=== PATIENT | male | born 1955 | race Caucasian/White ===

== ENCOUNTER → 2019-03-03 15:32 | Outpatient (CLI) | payer SELFPAY | END | disposition home or self-care (01) | LOC: D.LABREF 15:32 | PROVIDERS: ATTEND Legal Medicine | DX: R53.81 Other malaise (principal) ==

== ENCOUNTER 2020-07-14 15:05 | Inpatient (IN) | payer OTHER ==
[~2020-07-14] VITALS: Ht 177.8 cm; Wt 45.5 kg
[2020-07-14] MEDS ORDERED: MELATONIN 3 MG1 TAB PO (15:19)
[2020-07-14] MEDS ORDERED: MOBIC7.5 MG PO (15:20)
[2020-07-14] MEDS ORDERED: OMEPRAZOLE20 M1 PO (15:23)
[2020-07-14] MEDS ORDERED: CARAFATE1 G PO (15:24)
[2020-07-14] MEDS ORDERED: TRAZODONE HCL150 MG PO (15:25)
[2020-07-14] MEDS ORDERED: TYLENOL ARTHRI650 MG PO (15:26)
[2020-07-14] MEDS ORDERED: ASCORBIC ACID500 MG PO (15:27)
[2020-07-14] MEDS ORDERED: ZOLOFT50 MG PO (15:27)
[2020-07-14] MEDS ORDERED: VITAMIN D-32000 UNIT PO (15:27)
[2020-07-14] MEDS ORDERED: BIOFREEZE118 ML TOPICAL (15:28)
[2020-07-14] MEDS ORDERED: BENZTROPINE MESY1 MG PO (15:28)
[2020-07-14] MEDS ORDERED: CLOZAPINE200 MG PO (15:29)
[2020-07-14] MEDS ORDERED: CREON (PANCRELI1 CAP PO (15:29)
[2020-07-14] MEDS ORDERED: DEPAKOTE500 MG PO (15:30)
[2020-07-14] MEDS ORDERED: SURFAK240 MG PO (15:30)
[2020-07-14] MEDS ORDERED: LISINOPRIL2.5 MG PO (15:31)
[2020-07-14] MEDS ORDERED: ADVIL200 MG PO (15:31)
[2020-07-14] MEDS ORDERED: KEPPRA500 MG PO (15:31)
[2020-07-14 16:50] LABS: BASOPHILS 0.2 % (0-2); EOSINOPHILS 0 % (0-7); HEMATOCRIT 35.7 % (42.0-54.0); HEMOGLOBIN 11.7 g/dL (13.5-17.5); IMMATURE GRANULOCYTES 0.3 % (0-5); LYMPHOCYTE ABS# 1.49 10x3/uL (1.32-3.57); LYMPHOCYTES 12.7 % (15-50); MCH 26.2 pg (26.0-34.0); MCHC 32.8 g/dL (31.0-37.0); MEAN PLATELET VOLUME 9.7 fL (7.4-10.4); MONOCYTES 8.9 % (2-11); NEUTROPHIL ABS# 9.17 10x3/uL (1.78-5.38); NEUTROPHILS 77.9 % (40-80); PLATELET COUNT 193 10x3/uL (130-400); RBC 4.46 10x6/uL (4.20-6.10); RDW 14.6 % (11.5-14.5); WBC 11.8 10x3/uL (4.8-10.8)
[2020-07-14 17:00] LABS: APTT 26.1 SECONDS (22.8-39.4); INR 1.03 (0.85-1.17); PROTIME 12.5 SECONDS (11.6-15.0)
[2020-07-14 17:02] LABS: ANION GAP 12.3 mmol/L (8-16); CALCIUM 8.5 mg/dL (8.5-10.1); CARBON DIOXIDE 29.1 mmol/L (21.0-32.0); CREATININE - SERUM 1.1 mg/dL (0.6-1.3); POTASSIUM - SERUM 4.4 mmol/L (3.5-5.1)
[2020-07-14 17:08] LABS: ALBUMIN 3.3 g/dL (3.4-5.0); BILIRUBIN - TOTAL 0.18 mg/dL (0.2-1.3); PROTEIN - SERUM 6.1 g/dL (6.4-8.2)
--- NOTE | 2020-07-14 18:04 | NUR ---
PT AWAKE AND OIRENTED, TRANSFERED TO ROOM VIA STRETCHER. PT C/O PAIN RELATED TO NEW INJURY. STATES HE TOOK ALL HIS MEDICATIONS THIS AM AT THE [facility] CL IN REACH, SRX2.
[2020-07-14 18:22] VITALS: BP 116/87
[2020-07-14 19:20] VITALS: BP 97/65
[2020-07-14 20:00] VITALS: BP 112/74
--- NOTE | 2020-07-14 20:00 | NUR ---
INITIAL ROUNDS AND ASSESSMENT COMPLETED. PT RESTING IN BED. IVF INFUSING. MORHPHINE AUDIOVISUAL LEAD TECHNICIAN IN USE FOR PAIN CONTROL. CALL LIGHT IN REACH.
[2020-07-15 02:38] VITALS: BP 112/74; Ht 177.8 cm; Wt 45.5 kg
[2020-07-15 03:30] VITALS: BP 107/69
[2020-07-15 05:16] LABS: APTT 30.3 SECONDS (22.8-39.4); INR 1.09 (0.85-1.17); PROTIME 13.1 SECONDS (11.6-15.0)
[2020-07-15 08:00] VITALS: BP 112/62
--- NOTE | 2020-07-15 08:52 | NUR ---
AM MEDS GIVEN WITH SMALL DRINK OF WATER. PT LYING IN BED WITH HOB RAISED, REPOSITIONED AND DENIES ANY NEEDS AT THIS TIME. PT RR EVEN NON LABORED WITH COUGH NOTED. PT AWAKE AND ALERT, NO NEEDS VOICED WHEN ASKED. CLWR/
[2020-07-15 10:23] LABS: BASOPHILS 0.1 % (0-2); EOSINOPHILS 0 % (0-7); HEMATOCRIT 37.9 % (42.0-54.0); HEMOGLOBIN 11.9 g/dL (13.5-17.5); IMMATURE GRANULOCYTES 0.3 % (0-5); LYMPHOCYTE ABS# 2.75 10x3/uL (1.32-3.57); LYMPHOCYTES 19.8 % (15-50); MCH 26.2 pg (26.0-34.0); MCHC 31.4 g/dL (31.0-37.0); MEAN PLATELET VOLUME 10.3 fL (7.4-10.4); MONOCYTES 0.2 % (2-11); NEUTROPHIL ABS# 11.06 10x3/uL (1.78-5.38); NEUTROPHILS 79.6 % (40-80); PLATELET COUNT 158 10x3/uL (130-400); RBC 4.54 10x6/uL (4.20-6.10); WBC 13.9 10x3/uL (4.8-10.8)
[2020-07-15 10:34] LABS: MCV 83.5 fL (80.0-100.0)
[2020-07-15 10:39] LABS: ALBUMIN 3.3 g/dL (3.4-5.0); ANION GAP 16.3 mmol/L (8-16); BILIRUBIN - TOTAL 0.19 mg/dL (0.2-1.3); CALCIUM 8.4 mg/dL (8.5-10.1); CARBON DIOXIDE 23.4 mmol/L (21.0-32.0); POTASSIUM - SERUM 4.7 mmol/L (3.5-5.1); PROTEIN - SERUM 6.6 g/dL (6.4-8.2)
--- NOTE | 2020-07-15 10:39 | NUR ---
PT LYING IN BED WITH HOB RAISED, EYES CLOSED, AUDIBLE SNORING NOTED. IV INFUSING WITHOUT COMPLICATIONS. NO NEEDS VOICED. CLWR.
[2020-07-15 10:40] LABS: CREATININE - SERUM 1.5 mg/dL (0.6-1.3)
[2020-07-15 11:00] VITALS: BP 112/62
--- NOTE | 2020-07-15 14:23 | NUR ---
PT ASSISTED WITH REPOSITIONING IN BED AT THIS TIME. RR EVEN NON LABORED. PT AWAKENS EASILY AND DENIES ANY NEEDS. CLWR.
--- NOTE | 2020-07-15 14:36 | NUR ---
UPDATE GIVEN TO [facility] NURSE AT THIS TIME.
[2020-07-15 18:56] VITALS: BP 111/65
--- NOTE | 2020-07-15 22:27 | NUR ---
PATIENT LYING SEMI FOLWERS AWAKE AND ALERT, RESP EVEN AND NON LABORED, NO S/S OF DISTRESS, MEDICATIONS ADMINISTERED WITH NO COMPLICATIONS, IV MEDS INFUSING, WATER AND URINAL PROVIDED, NO FURTHER NEEDS AT THIS TIME, DIANNA PULIDOP
[2020-07-15 23:45] VITALS: BP 113/72
--- NOTE | 2020-07-16 01:04 | NUR ---
PATIENT EDUCATED ON SCD'S AND SCD'S ON PATIENT, LAURE PULIDO
--- NOTE | 2020-07-16 03:43 | NUR ---
I have reviewed this patient and I concur with the Shift Assessment completed by the Licensed Practical Nurse today this shift.
[2020-07-16 04:15] VITALS: BP 133/73
[2020-07-16 08:05] VITALS: BP 124/71
--- NOTE | 2020-07-16 08:18 | NUR ---
AM MEDS GIVEN PER EMAR. PT ASSISTED TO AN UPRIGHT POSITION AND HIS BREAKFAST TRAY. PT AWAKE AND ALERT, CONFUSION NOTED. PT VOICES WANTS AND NEEDS. NO NEEDS VOICED AT THIS TIME. CLWR.
--- NOTE | 2020-07-16 09:09 | NUR ---
IV TO RIGHT WRIST D/C D/T LEAKING AT SIDE. NEW IV STARTED TO LEFT FOREARM, BLOOD RETURN NOTED, IV FLUIDS AND E LEARNING DESIGNER INTITIATED. PT TOLERATED WELL. PT REPSITIONED IN THE BED, LIGHTS TURNED OFF. NO FURTHER NEEDS VOICED. CLWR.
--- NOTE | 2020-07-16 10:03 | NUR ---
PT LYING IN BED WITH HOB RAISED, RR EVEN NON LABORED WITH O2 IN PLACE. IV INFUSING WITHOUT DIFFICUTLY. EYES CLOSED, AUDIBLE SNORING NOTED. NO NEEDS VOICED. CLWR.
--- NOTE | 2020-07-16 11:58 | NUR ---
SPOKE WITH NURSE AT [facility] WITH AN UPDATE AT THIS TIME.
[2020-07-16 12:03] VITALS: BP 110/67
[2020-07-16] MEDS ORDERED: HYDROCODON-ACE1 EA10 PO (12:27)
--- NOTE | 2020-07-16 13:16 | MORECARE ---
CASE MANAGEMENT DISCHARGE SUMMARY PATIENT: LULI MANCERA UNIT: [id number] ADM DATE: 07/14/20 AGE: 65 : 57 SEX: M ROOM/BED: D.2103 AUTHOR: TAYLOR,DOC PHYSICIAN: REFERRING PHYSICIAN: MICHAEL BEVERLY MD DATE OF SERVICE: 07/16/20 Discharge Plan Patient Name: LULI MANCERA Facility: [facility]:[place] : 1955 Planned Disposition: [facility] Facility w Plan Readm Anticipated Discharge Date: 07/16/20 Discharge Date: Expected LOS: 2 Initial Reviewer: [email or web address] Initial Review Date: 07/14/2020 Generated: 07/16/20 2:15 pm Comments DCP- Discharge Planning Updated by [email or web address]: Aleks Greco on 07/16/20 12:[address] CM met with patient to complete DC plan and to evaluate needs. Patient lives at [facility] and feels safe to return there. MINI for [facility] signed and placed in chart. Spoke with Theresa of [facility]. Theresa stated that she will call this CM back regarding transport and further covid testing. Patient voiced no other needs at this time and is satisfied with DC plan. CM will continue to follow and will assist as needed with dc plans/needs. DCPIA - Discharge Planning Initial Assessment Updated by [email or web address]: Aleks Greco on 07/16/20 1:12 pm * Is the patient Alert and Oriented? No * PCP [facility] * Pharmacy [facility] * Preadmission Environment Nursing Home Facility * Facility Name [facility] * ADLs Total Dependent * Other Equipment [facility] * List name and contact numbers for known caregivers / representatives who currently or will assist patient after discharge: THUY MARRUFO (nephew) [phone] JENNY (sister) * Community resources currently utilized Other * Please name any agencies selected above. [facility] * Additional services required to return to the preadmission environment? Yes * Can the patient safely return to the preadmission environment? Yes * Has this patient been hospitalized within the prior 30 days at any hospital? No External Providers External Provider: [facility] and [facility] Next Contact Date: Service Request Date: Service Type: Resolution: Reviewer: Comments: Patient Name: LULI MANCERA Page [phone] at 1316 All edits/amendments must be made on the electronic document DICTATION DATE: 07/16/20 1316 CATERING SOUS CHEF: ANAYELI 07/16/20 1316 RPT#: [id number] DC DATE: STATUS: ADM IN [facility] [address] [place] [address] END OF REPORT
--- NOTE | 2020-07-16 14:00 | NUR ---
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 IV TO RIGHT FOREARM D/C AND DRESSING APPLIED, CATHETER INTACT. PT [facility] ALL BELONGINGS GATHERED, CLOTHING PLACED ON PT. NO NEEDS VOICED. CLWR.
--- NOTE | 2020-07-16 14:04 | NUR ---
REPORT CALLED TO MARK AT THIS TIME AT [facility].
--- NOTE | 2020-07-16 14:23 | MORECARE ---
CASE MANAGEMENT DISCHARGE SUMMARY PATIENT: LULI MANCERA UNIT: [id number] ADM DATE: 07/14/20 AGE: 65 : 57 SEX: M ROOM/BED: D.2103 AUTHOR: TAYLOR,DOC PHYSICIAN: REFERRING PHYSICIAN: MICHAEL BEVERLY MD DATE OF SERVICE: 07/16/20 Discharge Plan Patient Name: LULI MANCERA Facility: [facility]:[place] : 1955 Planned Disposition: [facility] Facility w Plan Readm Anticipated Discharge Date: 07/16/20 Discharge Date: Expected LOS: 2 Initial Reviewer: FLORENCE Initial Review Date: 07/14/2020 Generated: 07/16/20 3:22 pm Comments DCP- Discharge Planning Updated by FLORENCE: Aleks Greco on 07/16/20 1:[address] Spoke with [facility]. Patient will not need COVID Testing and a transport van will be sent to cook pickled meat patient. CM will continue to follow and will assist as needed with dc plans/needs. DCP- Discharge Planning Updated by FLORENCE: Aleks Greco on 07/16/20 12:[address] CM met with patient to complete DC plan and to evaluate needs. Patient lives at [facility] and feels safe to return there. MINI for [facility] signed and placed in chart. Spoke with Theresa of [facility]. Theresa stated that she will call this CM back regarding transport and further covid testing. Patient voiced no other needs at this time and is satisfied with DC plan. CM will continue to follow and will assist as needed with dc plans/needs. DCPIA - Discharge Planning Initial Assessment Updated by FLORENCE: Aleks Greco on 07/16/20 1:12 pm * Is the patient Alert and Oriented? No * PCP [facility] * Pharmacy [facility] * Preadmission Environment [facility] Facility * Facility Name [facility] * ADLs Total Dependent * Other Equipment [facility] * List name and contact numbers for known caregivers / representatives who currently or will assist patient after discharge: THUY MARRUFO (nephew) [phone] JENNY (sister) * Community resources currently utilized Other * Please name any agencies selected above. [facility] * Additional services required to return to the preadmission environment? Yes * Can the patient safely return to the preadmission environment? Yes * Has this patient been hospitalized within the prior 30 days at any hospital? No Coverage Notice Reviewer: [id number] Abiodun Greco Notice Issued Date-Time: 07/16/2020 13:00 Notice Type: Patient Choice Letter Notice Delivered To: Patient Relationship to Patient: Self Urban Anthropologist Name: Delivery Method: HAND - Hand Delivered Sharon Days: Prior Verbal Notification: Recipient Understood Notice: Yes Recipient Signature: Yes Med Rec Note Co-signed by Attending: Coverage Notice Comment: [facility] Last DP export: 07/16/20 12:16 pm Patient Name: LULI MANCERA Page [phone] at 1423 All edits/amendments must be made on the electronic document DICTATION DATE: 07/16/20 1423 DEPUTY BRAND INSPECTOR: ANAYELI 07/16/20 1423 RPT#: [id number] DC DATE: STATUS: ADM IN [facility] [address] [place] [address] END OF REPORT
--- NOTE | 2020-07-16 14:30 | NUR ---
PT WHEELED OUT TO [facility] WITH BELONGINGS AT THIS TIME.
--- NOTE | 2020-07-17 09:21 | MORECARE ---
CASE MANAGEMENT DISCHARGE SUMMARY PATIENT: LULI MANCERA UNIT: [id number] ADM DATE: 07/14/20 AGE: 65 : 57 SEX: M ROOM/BED: D.2103 AUTHOR: TAYLOR,DOC PHYSICIAN: REFERRING PHYSICIAN: MICHAEL BEVERLY MD DATE OF SERVICE: 07/17/20 Discharge Plan Patient Name: LULI MANCERA Facility: [facility]:[place] : 1955 Planned Disposition: [facility] Facility w Plan Readm Anticipated Discharge Date: 07/16/20 Discharge Date: 07/16/2020 Expected LOS: 2 Initial Reviewer: FLORENCE Initial Review Date: 07/14/2020 Generated: 07/17/20 10:20 am Comments DCP- Discharge Planning Updated by FLORENCE: Aleks Greco on 07/16/20 1:[address] Spoke with [facility]. Patient will not need COVID Testing and a transport van will be sent to pickle processor patient. CM will continue to follow and will assist as needed with dc plans/needs. DCP- Discharge Planning Updated by FLORENCE: Aleks Greco on 07/16/20 12:[address] CM met with patient to complete DC plan and to evaluate needs. Patient lives at [facility] and feels safe to return there. MINI for [facility] signed and placed in chart. Spoke with Theresa of [facility]. Theresa stated that she will call this CM back regarding transport and further covid testing. Patient voiced no other needs at this time and is satisfied with DC plan. CM will continue to follow and will assist as needed with dc plans/needs. DCPIA - Discharge Planning Initial Assessment Updated by FLORENCE: Aleks Greco on 07/16/20 1:12 pm * Is the patient Alert and Oriented? No * PCP [facility] * Pharmacy [facility] * Preadmission Environment Assisted Facility * Facility Name [facility] * ADLs Total Dependent * Other Equipment [facility] * List name and contact numbers for known caregivers / representatives who currently or will assist patient after discharge: THUY MARRUFO (nephew) [phone] JENNY (sister) * Community resources currently utilized Other * Please name any agencies selected above. [facility] * Additional services required to return to the preadmission environment? Yes * Can the patient safely return to the preadmission environment? Yes * Has this patient been hospitalized within the prior 30 days at any hospital? No Coverage Notice Reviewer: [id number] Abiodun Greco Notice Issued Date-Time: 07/16/2020 13:00 Notice Type: Patient Choice Letter Notice Delivered To: Patient Relationship to Patient: Self Power Builder Developer Name: Delivery Method: HAND - Hand Delivered Sharon Days: Prior Verbal Notification: Recipient Understood Notice: Yes Recipient Signature: Yes Med Rec Note Co-signed by Attending: Coverage Notice Comment: [facility] Last DP export: 07/16/20 1:23 pm Patient Name: LULI MANCERA Page [phone] at 0921 All edits/amendments must be made on the electronic document DICTATION DATE: 07/17/20919 DISTRIBUTION CENTER SUPERVISOR: ANAYELI 07/17/20919 RPT#: [id number] DC DATE:07/16/20 STATUS: DIS IN [facility] [address] [place] [address] END OF REPORT
== END 2020-07-16 14:30 | DRG 563 ==
LOC: D.ER 15:05 → D.M2 17:27
PROVIDERS: Family Medicine; ADMIT Family Medicine; ATTEND Family Medicine
PROC: 2W3MX1Z Immobilization of Left Lower Extremity using Splint (ICD-10-PCS; principal; 2020-07-14)
DX: S82.142A Displaced bicondylar fracture of left tibia, initial encounter for closed fracture (principal); E11.9 Type 2 diabetes mellitus without complications; I10 Essential (primary) hypertension; J44.9 Chronic obstructive pulmonary disease, unspecified; Z89.512 Acquired absence of left leg below knee; F34.1 Dysthymic disorder; W05.0XXA Fall from non-moving wheelchair, initial encounter; K21.9 Gastro-esophageal reflux disease without esophagitis; M19.90 Unspecified osteoarthritis, unspecified site

== ENCOUNTER 2020-10-01 04:24 | Inpatient (IN) | payer OTHER ==
[~2020-10-01] VITALS: Ht 177.8 cm; Wt 97.7 kg
[~2020-10-01 04:24] MED LIST: ADVIL200 MG PO; ASCORBIC ACID500 MG PO; BENZTROPINE MESY1 MG PO; BIOFREEZE118 ML TOPICAL; CARAFATE1 G PO; CLOZAPINE200 MG PO; CREON (PANCRELI1 CAP PO; DEPAKOTE500 MG PO; HYDROCODON-ACE1 EA10 PO; KEPPRA500 MG PO; LISINOPRIL2.5 MG PO; MELATONIN 3 MG1 TAB PO; MOBIC7.5 MG PO; OMEPRAZOLE20 M1 PO; SURFAK240 MG PO; TRAZODONE HCL150 MG PO; TYLENOL ARTHRI650 MG PO; VITAMIN D-32000 UNIT PO; ZOLOFT50 MG PO
[2020-10-01 05:13] LABS: BASOPHILS 0.4 % (0-2); EOSINOPHILS 0.1 % (0-7); HEMATOCRIT 28.1 % (42.0-54.0); HEMOGLOBIN 9.2 g/dL (13.5-17.5); MCH 25.2 pg (26.0-34.0); MCHC 32.7 g/dL (31.0-37.0); MEAN PLATELET VOLUME 8.5 fL (7.4-10.4); MONOCYTES 9.7 % (2-11); NEUTROPHILS 76.8 % (40-80); RBC 3.65 10x6/uL (4.20-6.10); RDW 16.6 % (11.5-14.5); WBC 11.6 10x3/uL (4.8-10.8)
[2020-10-01 05:24] LABS: CALC OSMOLALITY 278 mosm/kg (275-300); CALCIUM 8.3 mg/dL (8.5-10.1); CARBON DIOXIDE 32.8 mmol/L (21.0-32.0); CHLORIDE - SERUM 101 mmol/L (98-107); GLUCOSE 129 mg/dL (74-106); PLATELET COUNT 198 10x3/uL (130-400); POTASSIUM - SERUM 4.2 mmol/L (3.5-5.1); SODIUM 138 mmol/L (136-145); UREA NITROGEN 15 mg/dL (7-18); eGFR NON AFRICAN AMERICAN 80 mL/min (90-120)
[2020-10-01 05:29] LABS: INR 0.93 (0.85-1.17); PROTIME 11.5 SECONDS (11.6-15.0)
[2020-10-01 05:30] LABS: D-DIMER-QUANTITATIVE 0.54 ug/mLFEU (0.20-0.54)
[2020-10-01 05:38] LABS: ALBUMIN 2.9 g/dL (3.4-5.0); ALKALINE PHOSPHATASE 87 U/L (30-120); ALT (SGPT) 29 U/L (10-68); MAGNESIUM - SERUM 1.9 mg/dL (1.8-2.4); PRO BNP 307 pg/mL (0-125); PROTEIN - SERUM 6.5 g/dL (6.4-8.2)
[2020-10-01 05:39] LABS: TROPONIN-I < 0.017 ng/mL (0.000-0.060)
--- NOTE | 2020-10-01 07:30 | NUR ---
ATTEMPTED TO CALL REPORT, INFORMED THE NURSE WAS UNABLE TO TAKE REPORT AT THIS TIME AND WOULD CALL BACK.
--- NOTE | 2020-10-01 08:00 | NUR ---
ARRIVE TO FLOOR VIA STRETCHER FROM ER. TRANSFER TO BED. ALERT AND ORIENTED X4. GARBLED SPEECH. NO TELEMETRY AVAILABLE TO COMPLETE ORDER. REFUSE SCDs. EDUCATE RISK FOR DVT. NO PHARMACY. FROM [facility]. CONTINUE ADMISSION PROCESS AND SAFETY PRECAUTIONS.
[2020-10-01 08:28] LABS: BILIRUBIN NEGATIVE (NEGATIVE); KETONE NEGATIVE (NEGATIVE); NITRITE NEGATIVE (NEGATIVE); UROBILINOGEN NORMAL mg/dL (< 2)
[2020-10-01 10:24] VITALS: BP 151/86; Ht 177.8 cm; Wt 97.7 kg
[2020-10-01] MEDS ORDERED: BENADRYL25 MG PO (10:41)
[2020-10-01 12:00] VITALS: BP 118/75; BP 152/93
[2020-10-01 16:00] VITALS: BP 141/85
--- NOTE | 2020-10-01 18:01 | NUR ---
IV INFILTRATED. RESITE IV TO LT FA 22G SUCCESSFUL X1 ATTEMPT.
[2020-10-01 21:05] VITALS: BP 142/81
[2020-10-02] VITALS: BP 135/90
--- NOTE | 2020-10-02 03:08 | NUR ---
I have reviewed this patient and I concur with the Shift Assessment completed by the Licensed Practical Nurse today this shift.
[2020-10-02 04:29] VITALS: BP 128/67
[2020-10-02 09:00] VITALS: BP 131/79
[2020-10-02 10:08] LABS: BASOPHILS 0.9 % (0-2); EOSINOPHILS 0 % (0-7); HEMATOCRIT 30.1 % (42.0-54.0); HEMOGLOBIN 9.6 g/dL (13.5-17.5); LYMPHOCYTES 27.9 % (15-50); MCH 24.8 pg (26.0-34.0); MCV 77.5 fL (80.0-100.0); MEAN PLATELET VOLUME 8.4 fL (7.4-10.4); MONOCYTES 10.9 % (2-11); NEUTROPHILS 60.3 % (40-80); PLATELET COUNT 206 10x3/uL (130-400); RBC 3.89 10x6/uL (4.20-6.10); RDW 16.3 % (11.5-14.5)
[2020-10-02 10:12] LABS: WBC 5.9 10x3/uL (4.8-10.8)
[2020-10-02] MEDS ORDERED: ZITHROMAX 500M500 MG PO (10:18)
[2020-10-02] MEDS ORDERED: ROCEPHIN 1 GM/D51 G1 IM (10:18)
[2020-10-02] MEDS ORDERED: LISINOPRIL10 MG PO (10:19)
[2020-10-02] MEDS ORDERED: FLORAJEN DIGES1 EACH PO (10:20)
[2020-10-02 10:22] LABS: CHOL - HDL RATIO 2.5 ratio (2.3-4.9)
[2020-10-02] MEDS ORDERED: CLOZAPINE200 MG PO (10:24)
--- NOTE | 2020-10-02 11:49 | NUR ---
I have reviewed this patient and I concur with the Shift Assessment completed by the Licensed Practical Nurse today this shift.
--- NOTE | 2020-10-02 13:20 | NUR ---
REPORT CALLED TO MARK AT [facility]. THEY WILL CALL BACK WITH ETA FOR TRANSPORT.
--- NOTE | 2020-10-02 13:59 | NUR ---
[facility] HERE TO TRANSPORT PATIENT BACK. DC PIV WITH CATH TIP INTACT, DISCHARGE PAPERS SIGNED AND COPIES PROVIDED. PATIENT LEFT VIA WHEELCHAIR ACCOMPANIED BY ROSA MARIA FLORES STEAMING MACHINE OPERATOR AND TRANPORTATION AIDE FROM [facility]
== END 2020-10-02 13:57 | DRG 195 ==
LOC: D.ER 04:24 → D.M2 06:33
PROVIDERS: Family Medicine; ADMIT Family Medicine; ATTEND Family Medicine
DX: J18.9 Pneumonia, unspecified organism (principal); J44.9 Chronic obstructive pulmonary disease, unspecified; I10 Essential (primary) hypertension; D50.8 Other iron deficiency anemias; E11.9 Type 2 diabetes mellitus without complications; M19.90 Unspecified osteoarthritis, unspecified site; K21.9 Gastro-esophageal reflux disease without esophagitis; F20.3 Undifferentiated schizophrenia; F34.1 Dysthymic disorder; Z89.512 Acquired absence of left leg below knee; Z72.0 Tobacco use